=== PATIENT | female | born 1960 | race Caucasian/White ===

== ENCOUNTER 2019-10-23 14:18 | Inpatient (IN) ==
[2019-10-23 14:46] LABS: BASO# 0.06 X1000 (0.0-0.2); BASO% 0.5 % (0.0-0.8); EOS# 0.33 X1000 (0.0-0.7); EOS% 2.6 % (0.0-10.0); IMM GRAN# 0.02 X1000 (0.0-0.04); IMM GRAN% 0.2 % (0.0-0.5); LYMPH# 2.94 X1000 (1.2-3.4); LYMPH% 23.5 % (20.5-51.1); MCH 29.9 PG (27-31); MCHC 34.1 g/dL (33-37); MCV 87.6 FL (81-99); MONO# 0.68 X1000 (0.11-0.59); MONO% 5.4 % (1.7-9.3); MPV 11.5 FL (7.4-10.4); NEUT% 67.8 % (42.2-75.2); PLT 331 X1000 (130-400); RBC 4.68 XMIL (4.2-5.4); RDW 13.1 % (11.5-14.5); WBC 12.53 X1000 (4.8-10.8)
[2019-10-23 15:07] LABS: ALBUMIN 4.7 g/dL (3.5-5.0); CALCIUM 10.4 mg/dL (8.8-10.2); CREATININE 2.3 mg/dL (0.5-0.9); POTASSIUM 3.3 mmol/L (3.5-5.1); TOTAL BILIRUBIN 0.6 mg/dL (0.20-1.00); TOTAL PROTEIN 7.9 g/dL (6.3-8.3)
[2019-10-23] MEDS ORDERED: NS 1,000 ML IV ONE (15:17)
[2019-10-23] MEDS ORDERED: HUMULIN R IV ONE (15:18)
[2019-10-23] MEDS ORDERED: HUMULIN R (PARKWAY) ONE ×2 (15:23→15:26)
[2019-10-23 16:19] LABS: BE 13.8 mmoll (-3.0-3.0); BLOOD TYPE ARTERIAL; HCO3-(ACT) 35.6 mmoll (20.0-26.0); METHB 1.2 % (0.0-1.5); O2(CT) 19.3 mL/dL (15.0-23.0); O2HB 93.8 % (95.0-99.0); PO2(98.6) 76 mmHg (60-100); SAMPLE BLOOD; SAO2 96.7 % (95.0-100.0); THB 14.6 g/dL (11.5-17.4); pH(98.6) 7.49 (7.35-7.45)
[2019-10-23] MEDS ORDERED: ZOFRAN IV PRN (16:28)
[2019-10-23] MEDS ORDERED: TYLENOL PO PRN (16:28)
[2019-10-23 16:37] LABS: URINE SOURCE CATH
[2019-10-23] MEDS ORDERED: KLOR-CON PO ONE (16:37)
[2019-10-23 16:40] LABS: BILIRUBIN URINE NEGATIVE (NEGATIVE); BLOOD URINE NEGATIVE (NEGATIVE); COLOR STRAW; GLUCOSE URINE >1000 mg/dL (NEGATIVE); KETONE URINE NEGATIVE (NEGATIVE); LEUKOCYTES URINE NEGATIVE (NEGATIVE); NITRITE URINE NEGATIVE (NEGATIVE); PROTEIN URINE NEGATIVE (NEGATIVE); SP GRAVITY URINE 1.006; TURBIDITY URINE CLEAR (CLEAR); UROBILINOGEN URINE NORMAL (NORMAL)
--- NOTE | 2019-10-23 16:40 | PROVIDER DOCUMENTATION ---
This chart was entered by Odalis Martinez Scribe, acting as scribe for Charan Jacob MD. HPI-General Adult - General Chief Complaint: Weakness Stated Complaint: LEG WEAKNESS Time Seen by Provider: 10/23/19 15:13 Source: patient Allergies/Adverse Reactions: Patient Allergies Allergy/AdvReac Type Severity Reaction Status Date / Time Sulfa (Sulfonamide Allergy ANAPHYLAXIS Verified 10/23/19 16:34 Antibiotics) Home Medications: Home Medication List Medication Instructions Recorded Confirmed Last Taken Type Carvedilol [Coreg] 6.25 mg PO BID 04/28/13 01/09/17 10/16/15 History Divalproex E.r. [Depakote ER] 500 mg PO BID 04/28/13 01/09/17 10/17/15 06:30 History 500 Glipizide E.r. [Glucotrol Xl] 2.5 mg PO DAILY 04/28/13 01/09/17 10/16/15 07:00 History 2.5 Omeprazole [Prilosec] 40 mg PO QAM 04/28/13 01/09/17 10/16/15 07:00 History 40 Potassium Chloride [Klor-Con M20] 20 meq PO DAILY 06/15/13 01/09/17 10/16/15 07:00 History 20 ATORVAstatin [Lipitor] 10 mg PO QHS 10/13/15 01/09/17 10/16/15 18:00 History 10 Albuterol Sulfate [Proair Hfa] 1 puff IH 4XDAY 10/13/15 01/09/17 10/16/15 07:00 History 1 Cholecalciferol (Vitamin D3) 2,000 unit PO DAILY 10/13/15 01/09/17 10/16/15 07:00 History [Vitamin D3] 2000 Cyclobenzaprine [Flexeril] 5 mg PO PRN PRN 10/13/15 01/09/17 Unknown History Fenofibrate Nanocrystallized 145 mg PO DAILY 10/13/15 01/09/17 10/16/15 07:00 History [Tricor] 145 Fluticasone/Salmeterol [Advair 1 each IH BID 10/13/15 01/09/17 Unknown History 250-50 Diskus] Furosemide [Lasix] 40 mg PO PRN PRN 1101/09/17 10/16/15 07:00 History 40 Gabapentin 100 mg PO TID 10/13/15 01/09/17 10/16/15 18:00 History 100 Levothyroxine [Synthroid] 50 microgm PO DAILY 10/13/15 01/09/17 10/16/15 07:00 History 50 Lisinopril/Hydrochlorothiazide 1 each PO DAILY 10/13/15 01/09/17 10/16/15 18:00 History [Lisinopril-Hctz 20-25 mg Tab] 1 Loperamide [Imodium] 2 mg PO PRN PRN 10/13/15 01/09/17 Unknown History Multivitamins/Minerals [Centrum 1 each PO DAILY 10/13/15 01/09/17 10/16/15 07:00 History Silver] 1 Rivaroxaban [Xarelto] 20 mg PO DAILY 10/13/15 10/17/15 10/05/15 History 20 Tiotropium [place] Inhaler 1 puff INH BID 10/13/15 01/09/17 10/16/15 History [Spiriva] 1 Ferrous Sulfate 325 mg PO DAILY 01/09/17 01/09/17 Unknown History Magnesium Oxide 400 mg PO DAILY 01/09/17 01/09/17 Unknown History Ondansetron Odt [Zofran Odt] 4 mg PO Q6H PRN PRN 01/09/17 01/09/17 Unknown History CefUROXIME [Ceftin] 500 mg PO Q12HR #28 tablet 01/14/17 Unknown Rx Levofloxacin [Levaquin] 750 mg PO DAILY #7 tablet 03/20/17 Unknown Rx - History of Present Illness -Gen Adult Nature of Presenting Problems: Patient is a 59 year old female who presents with weakness, polyuria and increase in thirst. States symptoms started this morning. History of diabetes. Denies nausea, vomiting and diarrhea. Location of Pain/Injury: reports: none Quality of Pain: reports: none Severity: reports: mild Onset/Duration: reports: this afternoon Timing: reports: still present Context/Activities at Onset: reports: light activity Associated Symptoms: reports: genitourinary problems (polyuria), weakness, other (increase in thirst) Similar Symptoms Previously?: No Recently seen or treated by another doctor?: No Review of Systems - Adult - REVIEW OF SYSTEMS - ADULT Constitutional: reports: no symptoms reported Eyes: reports: no symptoms reported Ears, Nose, Mouth & Throat: reports: no symptoms reported Cardiovascular: reports: no symptoms reported Respiratory: reports: no symptoms reported Gastrointestinal: reports: no symptoms reported Genitourinary: reports: no symptoms reported Musculoskeletal: reports: see HPI, muscle weakness. denies: back pain, neck pain Integumentary: reports: no symptoms reported Neurological: reports: no symptoms reported Psychiatric: reports: no symptoms reported Endocrine: reports: see HPI, increased thirst, polyuria. denies: excessive sweating Hematologic/Lymphatic: reports: no symptoms reported Allergic/Immunologic: reports: no symptoms reported All Other Systems: Reviewed and Negative Past History - Adult - PAST MEDICAL HISTORY-ADULT Review of Records: reports: Old Records Reviewed, Nursing Assessment Review, Medications Reviewed, Social history reviewed & non-contributory. Major Childhood Illnesses: reports: denies history Cardiovascular: reports: CHF, HTN, hyperlipidemia Respiratory: reports: COPD, sleep apnea Gastrointestinal: reports: cancer, GERD Obstetrical/Gynecological: reports: denies history Genitourinary: reports: denies history Musculoskeletal: reports: denies history Neurological: reports: Seizures/Epilepsy Endocrine/Immune: reports: Diabetes, thyroid disorder Other Conditions: reports: denies history - PRIOR SURGERIES/PROCEDURES Surgical/Procedure History: reports: appendectomy, colonoscopy, cholecystectomy, BTL - IMMUNIZATION STATUS Childhood Immunizations: See Nurse Assessment Flu Vaccine: See Nurse Assessment - FAMILY HISTORY Family History: reviewed, not pertinent - SOCIAL HISTORY Smoking: cigarettes (former) Substance Use: denies Living Situation: family Physical Exam-General - PHYSICAL EXAM-ADULT Initial Vital Signs Reviewed: Yes - CONSTITUTIONAL General Appearance: alert, no apparent distress. negative: lethargic - HEAD, EARS, NOSE, MOUTH & THROAT HENMT: normocephalic/atraumatic, other (dry mucous membranes). negative: angioedema - RESPIRATORY Respiratory: chest non-tender, lungs clear, normal breath sounds. negative: rales - CARDIOVASCULAR Cardiovascular: normal peripheral pulses, regular rate, rhythm. negative: tachycardia - GASTROINTESTINAL (ABDOMEN) Abdominal Exam: normal bowel sounds, non tender, soft. negative: rigid - MUSCULOSKELETAL Extremity: normal inspection. negative: deformity, erythema - SKIN Integumentary: normal color, normal turgor, warm/dry. negative: diaphoresis, jaundice - NEUROLOGIC Neurologic: grossly normal. negative: aphasia, facial droop - PSYCHIATRIC Psych/Mental Status: normal mood/affect, oriented x 3. negative: anxious Progress - PLAN OF CARE/RESULTS Progress/Plan/Lab Results: Vital Signs - 8 hr 10/23/19 14:23 Temperature 98.2 F Pulse Rate 75 Respiratory Rate 20 Blood Pressure 123/81 O2 Sat by Pulse Oximetry 95 Laboratory Results - last 24 hr 10/23/19 10/23/19 10/23/19 14:34 14:34 14:34 WBC 12.53 H RBC 4.68 Hgb 14.0 Hct 41.0 MCV 87.6 MCH 29.9 MCHC 34.1 RDW Std Deviation 13.1 Plt Count 331 MPV 11.5 H Immature Gran % (Auto) 0.2 Neut % (Auto) 67.8 Lymph % (Auto) 23.5 Keith % (Auto) 5.4 Eos % (Auto) 2.6 Baso % (Auto) 0.5 Immature Gran # (Auto) 0.02 Neut # (Auto) 8.50 H Lymph # (Auto) 2.94 Keith # (Auto) 0.68 H Eos # (Auto) 0.33 Baso # (Auto) 0.06 Sodium Potassium Chloride Carbon Dioxide Anion Gap BUN Creatinine Estimated GFR/1.73 m2 BUN/Creatinine Ratio Glucose Calculated Osmolality Calcium Total Bilirubin AST ALT Alkaline Phosphatase Creatine Kinase 49 Troponin T < 0.010 Total Protein Albumin Globulin Albumin/Globulin Ratio Acetone Level 10/23/19 10/23/19 14:34 14:34 WBC RBC Hgb Hct MCV MCH MCHC RDW Std Deviation Plt Count MPV Immature Gran % (Auto) Neut % (Auto) Lymph % (Auto) Keith % (Auto) Eos % (Auto) Baso % (Auto) Immature Gran # (Auto) Neut # (Auto) Lymph # (Auto) Keith # (Auto) Eos # (Auto) Baso # (Auto) Sodium 128 L Potassium 3.3 L Chloride 74 L Carbon Dioxide 33 Anion Gap 21 BUN 38 H Creatinine 2.3 H Estimated GFR/1.73 m2 22 BUN/Creatinine Ratio 17 Glucose 517 H* Calculated Osmolality 289 Calcium 10.4 H Total Bilirubin 0.60 AST 20 ALT 15 Alkaline Phosphatase 215 H Creatine Kinase Troponin T Total Protein 7.9 Albumin 4.7 Globulin 3.0 Albumin/Globulin Ratio 1.0 Acetone Level NEGATIVE Orders Category Date Time Status CHEST-2 VIEWS [RAD] Stat Exams 10/23/19 14:32 Taken ABG [RESP] Routine Lab 10/23/19 15:17 Ordered ACETONE SERUM [CHEM] Stat Lab 10/23/19 14:34 Completed CBC WITH DIFF [HEME] Stat Lab 10/23/19 14:34 Completed CK PROFILE [SP CHEM] Stat Lab 10/23/19 14:34 Completed COMPREHENSIVE METABOLIC PANEL [CHEM] Stat Lab 10/23/19 14:34 Completed TROPONIN T Stat Lab 10/23/19 14:34 Completed 0.9% Sodium Chloride Inj [Ns] 1,000 ml Med 10/23/19 15:17 Active IV 999 mls/hr Insulin Human Regular ([place] [Humulin R ([place])] Med 10/23/19 15:23 Discontinued 10 units .ROUTE .STK-MED ONE Insulin Human Regular ([place] [Humulin R ([place])] Med 10/23/19 15:26 Disco ntinued 10 units .ROUTE .STK-MED ONE Insulin Human Regular [Humulin R] Med 10/23/19 15:18 Discontinued 10 unit IV NOW ONE EKG [EKG] Stat Ther 10/23/19 14:32 Ordered Result Diagrams: 10/23/19 14:34 10/23/19 14:34 - REASSESSMENT Reassessment #1 Time Reassessed: 16:36 Status: improving (note ABGs, not acidotic. admit to dr Pepper here.) - EKG 1 Time of EKG reading by physician:: 15:00 EKG Read and Signed by:: Charan Jacob EKG Interpretation (*Must complete 3 of following elements*): Abnormal Rate: 74 Rhythm: normal sinus rhythm [place]: normal [place] Interval: normal Comments: cannot rule out anterior infarct, age undetermined - CONSULTS/PCP/HOSPITALIST Notification #1 *Consult/PCP/Hospitalist*: Dr. Pepper Time Discussed: 15:58 Reason/Comments: Dr. Jacob consulted with Dr. Pepper about patient Consult Disposition: Admit Departure - Departure Date of Disposition Decision: 10/23/19 Time of Disposition Decision: 16:28 DIAGNOSIS: Dehydration, Hyperglycemia, Leukocytosis, Hyponatremia, Acute renal insufficiency, Hypokalemia Disposition: ADMITTED INPATIENT 09 Certified Medical Emergency: Emergent Condition: Stable Referrals and Follow-Ups: Sukhdev Pepper MD [Primary Care Provider] - - Critical Care Note This patient required my direct & personal management of CC.: No Attestation - Physician/ PATRICIA Attestation The physician spent face to face time with patient:: Yes Advanced Practice Provider documentation review:: Supervising physician onsite and consulted in the evaluation and care of this patient. The physician did have a face to face encounter with the patient. This chart was documented by the indicated scribe, (Odalis Martinez Scribe) and accurately reflects the services I performed and decisions made by me, Silvestre Jacob MD, as attested by the provider's signature.
[2019-10-23 16:42] LABS: UR EPITHELIAL CELLS <10 /HPF (<10); URINE BACTERIA NEGATIVE /HPF; URINE RBC <10 /HPF (<10); URINE WBC <10 /HPF (<10)
--- NOTE | 2019-10-23 16:55 | Diag Imaging Result Doc PS360 ---
EXAM: CHEST-2 VIEWS INDICATION: weakness TECHNIQUE: 2 views COMPARISON: 03/20/2017 FINDINGS: Inspiration is slightly suboptimal. There is stable mild linear scarring at the lower lung zones bilaterally. There is no discrete pleural fluid collection or pneumothorax. The cardiomediastinal silhouette and central vasculature are grossly unremarkable. IMPRESSION: Stable mild lower lung zone scarring. No definite acute chest pathology, otherwise. Electronically signed by Jasper Perry 10/23/2019 4:52 PM
[2019-10-23 17:12] LABS: ALLEN TEST YES; MODALITY ROOM AIR; PCO2(98.6) 52 mmHg (35-45)
[2019-10-23] MEDS ORDERED: HUMALOG (PARKWAY) ONE (17:56)
[2019-10-23] MEDS: NS 1,000 ML IV SCH (18:02)
[2019-10-23] MEDS: HUMALOG (PARKWAY) SUBQ SCH (18:02)
--- NOTE | 2019-10-23 18:22 | EKG Report ---
Test Performed on : 10/23/2019 3:00:17 PM Test Reason : WEAKNESS Blood Pressure : / mmHG Vent. Rate : 074 BPM Atrial Rate : 074 BPM P-R Int : 148 ms QRS Dur : 084 ms QT Int : 444 ms P-R-T Axes : 053 -20 031 degrees QTc Int : 492 ms Normal sinus rhythm. Cannot rule out Anterior infarct , age undetermined Abnormal ECG When compared with ECG of 20-MAR-2017 08:57, No significant change was found Unconfirmed Result
--- NOTE | 2019-10-23 23:50 | HISTORY AND PHYSICAL ---
CHIEF COMPLAINT: Nausea. HISTORY OF PRESENT ILLNESS: The patient is a 59-year-old female who sees nurse practitioner at [facility]. She notes that she has been out of her medications, but has not gone to the pharmacy to pick them up yet. States she has had some nausea and vomiting and that is what presented to the ER. SOCIAL HISTORY: She is . She is on disability. Lives at home in [place]. Denies alcohol use. ALLERGIES: No known drug allergies. MEDICATIONS: Coreg 6.25 twice daily, Glucotrol, omeprazole, Lipitor, ProAir, Lasix, Synthroid, blood pressure medication. Do not have an active medication list. REVIEW OF SYSTEMS: Notes she has had some increased urination and some occasional dysuria, increased thirst. Has had nausea, abdominal pain. Denies diarrhea. Denies blood in her urine, blood in her stool. Denies headaches, blurred vision, change in vision. Denies focalized numbness, tingling, or weakness in her extremities. Denies any dysuria, urinary frequency, urgency prior to the past 2 days. Denies any weight loss or weight gain. Denies chest pain, palpitations. PAST MEDICAL HISTORY: Significant for hypertension, diabetes, chronic reflux, seizures, hypothyroidism, COPD, CHF, hyperlipidemia, sleep apnea. SURGICAL HISTORY: She has had an appendectomy, colonoscopy, cholecystectomy, bilateral tubal. PHYSICAL EXAMINATION: VITAL SIGNS: Reviewed. Temperature 98 degrees, pulse 75, respiratory 20, BP 123/81. GENERAL: Patient is awake, alert. She is currently in no respiratory distress. She is pleasant to talk with but is somewhat ill appearing. HEENT: Normocephalic. NECK: Supple. CARDIOVASCULAR: Regular rate. No murmurs. CHEST: Clear and unlabored. ABDOMEN: Soft, diffusely tender. No masses. No hepatosplenomegaly. Positive bowel sounds. EXTREMITIES: Moves all extremities. No edema. NEUROLOGIC: No focal neurological changes. She is awake, alert, oriented x3. SKIN: Warm, dry. No rashes. LABORATORIES: WBCs 12.5. Glucose 128, potassium 3.3, creatinine 2.3, glucose 517. ASSESSMENT: 1. Diabetes with marked hyperglycemia. 2. Hyponatremia. 3. Hypokalemia. 4. Acute on chronic renal failure. Creatinine typically is around 1.5. She is currently elevated at 2.3 secondary to volume depletion and prerenal. 5. Hypertension. 6. Congestive heart failure. 7. Hypothyroidism. 8. Questionable viral gastroenteritis versus hyperglycemic effect. PLAN: We are going to admit her to the hospital. Her bicarbonate is 33. Acetone is negative. Although she is hyperglycemic, she does not appear to be in DKA. We are going to admit her to the hospital. IV fluids. Start her on sliding scale insulin. Restart her home medications when we can verify medication and dosage. Check a urine for culture and we will follow. We will replace her potassium and her sodium. cc: Sukhdev Pepper MD
[2019-10-24] MEDS: HUMALOG (PARKWAY) SUBQ SCH ×5 (00:19→21:21)
[2019-10-24] MEDS: NS 1,000 ML IV SCH (05:55)
[2019-10-24 07:01] LABS: HEMATOCRIT 37.6 % (37.0-47.0); HEMOGLOBIN 12.6 g/dL (12.0-16.0); MCHC 33.5 g/dL (33-37); MCV 89.5 FL (81-99); MPV 11.8 FL (7.4-10.4); RBC 4.2 XMIL (4.2-5.4); WBC 10.31 X1000 (4.8-10.8)
[2019-10-24 07:06] LABS: ALBUMIN 3.6 g/dL (3.5-5.0); CALCIUM 9.5 mg/dL (8.8-10.2); CREATININE 1.6 mg/dL (0.5-0.9); MAGNESIUM 2.1 mg/dL (1.5-2.7); POTASSIUM 2.9 mmol/L (3.5-5.1); TOTAL BILIRUBIN 0.4 mg/dL (0.20-1.00); TOTAL PROTEIN 6.4 g/dL (6.3-8.3)
[2019-10-24 07:27] LABS: HEMOGLOBIN A1C 14.1 % (4.8-6.0)
[2019-10-24] MEDS ORDERED: KLOR-CON PO ONE (08:36)
[2019-10-24] MEDS ORDERED: IMODIUM PO PRN (08:38)
[2019-10-24] MEDS ORDERED: ZOFRAN ODT PO PRN (08:38)
[2019-10-24] MEDS ORDERED: LASIX PO PRN (08:38)
[2019-10-24] MEDS: ADVAIR 250/50 DISKUS INH SCH ×2 (10:15→19:55)
[2019-10-24] MEDS: SPIRIVA INH SCH ×2 (10:16→19:56)
[2019-10-24] MEDS: GLUCOTROL XL PO SCH (10:28)
[2019-10-24] MEDS: SYNTHROID PO SCH (10:28)
[2019-10-24] MEDS: THERA M PLUS PO SCH (10:28)
[2019-10-24] MEDS: HYDROCHLOROTHIAZIDE PO SCH (10:28)
[2019-10-24] MEDS: PRINIVIL PO SCH (10:28)
[2019-10-24] MEDS: DEPAKOTE ER PO SCH ×2 (10:29→21:21)
[2019-10-24] MEDS: TRICOR PO SCH (10:29)
[2019-10-24] MEDS: MAG-OX PO SCH (10:29)
[2019-10-24] MEDS: COREG PO SCH (10:29)
[2019-10-24] MEDS: NEURONTIN PO SCH ×3 (10:30→21:21)
[2019-10-24] MEDS: VITAMIN D PO SCH (10:30)
[2019-10-24] MEDS: XARELTO PO SCH (10:39)
[2019-10-24] MEDS: FERROUS SULFATE PO SCH (10:39)
[2019-10-24] MEDS: KLOR-CON PO ONE ×2 (16:52→17:14)
[2019-10-24] MEDS: LIPITOR PO SCH (21:21)
[2019-10-25] MEDS: COREG PO SCH ×2 (05:25→08:06)
[2019-10-25] MEDS: HUMALOG (PARKWAY) SUBQ SCH ×4 (06:04→21:04)
[2019-10-25 06:24] LABS: HEMATOCRIT 35.8 % (37.0-47.0); HEMOGLOBIN 11.5 g/dL (12.0-16.0); MCH 29.3 PG (27-31); MCHC 32.1 g/dL (33-37); MCV 91.1 FL (81-99); MPV 11.3 FL (7.4-10.4); RBC 3.93 XMIL (4.2-5.4); RDW 13.1 % (11.5-14.5); WBC 9.97 X1000 (4.8-10.8)
[2019-10-25 06:37] LABS: CALCIUM 9.2 mg/dL (8.8-10.2); POTASSIUM 3.1 mmol/L (3.5-5.1)
[2019-10-25] MEDS: PRILOSEC PO SCH (07:10)
[2019-10-25] MEDS: SYNTHROID PO SCH (07:11)
[2019-10-25] MEDS: ADVAIR 250/50 DISKUS INH SCH ×2 (07:55→19:39)
[2019-10-25] MEDS: SPIRIVA INH SCH ×2 (07:55→19:38)
[2019-10-25] MEDS: TRICOR PO SCH (08:04)
[2019-10-25] MEDS: PRINIVIL PO SCH (08:05)
[2019-10-25] MEDS: MAG-OX PO SCH (08:05)
[2019-10-25] MEDS: HYDROCHLOROTHIAZIDE PO SCH (08:05)
[2019-10-25] MEDS: FERROUS SULFATE PO SCH (08:06)
[2019-10-25] MEDS: XARELTO PO SCH (08:06)
[2019-10-25] MEDS: NEURONTIN PO SCH ×3 (08:06→16:30)
[2019-10-25] MEDS: DEPAKOTE ER PO SCH ×2 (08:06→21:04)
[2019-10-25] MEDS: VITAMIN D PO SCH (08:06)
[2019-10-25] MEDS: THERA M PLUS PO SCH (08:06)
[2019-10-25] MEDS: GLUCOTROL XL PO SCH (08:06)
[2019-10-25] MEDS: KLOR-CON PO SCH (08:08)
[2019-10-25] MEDS ORDERED: GLUCOTROL XL PO ONE (09:25)
--- NOTE | 2019-10-25 09:35 | PROGRESS NOTE ---
DATE: 10/24/2019 SUBJECTIVE: The patient notes that she is feeling a lot better, having less nausea. She is hoping she is going to be able to eat breakfast. Notes her blood sugars at home are typically 120. PHYSICAL EXAMINATION: Temperature 98.3 degrees, pulse 81, respiratory rate 18, BP 132/71.General: Patient is awake. She is in no respiratory distress. HEENT: Normocephalic. Neck: Supple. Cardiovascular: Regular rate. Chest: Clear. Abdomen: Soft. Extremities: Moves all extremities. ASSESSMENT: 1. Diabetes with marked hyperglycemia. Continues to improve. Blood sugars down at 330. Her A1c is 14, which was highly unlikely that her average blood sugar at home is 120. Discussed with her that most likely if her machine is reading 120 either she has not calibrated her strips or her machine is broken. 2. Hyponatremia improving. 3. Hypokalemia, still problematic. We will replace. 4. Acute on chronic renal failure, improving. 5. Hypertension. 6. Congestive heart failure. PLAN: We will continue patient in the hospital. Continue sliding scale insulin. We will continue replacing potassium. Restart her home medications and will adjust if needed. cc: Sukhdev Pepper MD
[2019-10-25] MEDS: NS 1,000 ML IV SCH ×2 (10:39→17:23)
--- NOTE | 2019-10-25 13:11 | PROGRESS NOTE ---
DATE: 10/25/2019 SUBJECTIVE: Patient notes that she is tired this morning. Does not feel well. Denies any focal issues. Denies chest pain or palpitations. PHYSICAL EXAMINATION: Vital Signs: Reviewed. Temp 98 degrees, pulse 77, respiratory 20, BP low at 71/47 to 85 systolic. HEENT: Normocephalic. Neck: Supple. Cardiovascular: Regular rate. Chest: Clear, nonlabored, no wheezing. Abdomen: Soft, nondistended, nontender. Extremities: Moves all extremities. ASSESSMENT: 1. Hypotension. We are obviously going to hold her Coreg, lisinopril, and hydrochlorothiazide, place her on IV fluids. 2. Hypokalemia. We will replace. 3. Diabetes. Blood sugars are better at 225. We are going to increase her glipizide to 5. 4. Acute on chronic renal failure. Creatinine has actually bumped up a little bit today from yesterday. 5. Hyponatremia. cc: Sukhdev Pepper MD
[2019-10-25] MEDS: LIPITOR PO SCH (21:04)
[2019-10-26 05:28] VITALS: BP 115/66
[2019-10-26] MEDS: NS 1,000 ML IV SCH (05:57)
[2019-10-26] MEDS: PRILOSEC PO SCH ×2 (05:58→06:03)
[2019-10-26] MEDS: SYNTHROID PO SCH ×2 (05:58→06:03)
[2019-10-26 06:04] LABS: HEMATOCRIT 36.6 % (37.0-47.0); HEMOGLOBIN 11.7 g/dL (12.0-16.0); MCH 29.2 PG (27-31); MCV 91.3 FL (81-99); MPV 11.3 FL (7.4-10.4); RBC 4.01 XMIL (4.2-5.4)
[2019-10-26 06:18] LABS: ALBUMIN 3.7 g/dL (3.5-5.0); CALCIUM 9.3 mg/dL (8.8-10.2); CREATININE 1.4 mg/dL (0.5-0.9); MAGNESIUM 2.1 mg/dL (1.5-2.7); POTASSIUM 3.3 mmol/L (3.5-5.1); TOTAL BILIRUBIN 0.3 mg/dL (0.20-1.00)
[2019-10-26] MEDS ORDERED: LASIX PO PRN (06:30)
[2019-10-26] MEDS: HUMALOG (PARKWAY) SUBQ SCH (06:40)
[2019-10-26] MEDS: ADVAIR 250/50 DISKUS INH SCH (08:11)
[2019-10-26] MEDS: SPIRIVA INH SCH (08:11)
[2019-10-26] MEDS: XARELTO PO SCH (08:24)
[2019-10-26] MEDS: THERA M PLUS PO SCH (08:24)
[2019-10-26] MEDS: VITAMIN D PO SCH (08:24)
[2019-10-26] MEDS: FERROUS SULFATE PO SCH (08:24)
[2019-10-26] MEDS: MAG-OX PO SCH (08:24)
[2019-10-26] MEDS: KLOR-CON PO SCH (08:24)
[2019-10-26] MEDS: NEURONTIN PO SCH (08:24)
[2019-10-26] MEDS: TRICOR PO SCH (08:24)
[2019-10-26] MEDS: DEPAKOTE ER PO SCH (08:24)
[2019-10-26] MEDS ORDERED: GLUCOTROL XL PO SCH (09:00)
--- NOTE | 2019-10-29 04:30 | DISCHARGE SUMMARY ---
ADMISSION DATE: 10/23/2019 DISCHARGE DATE: 10/26/2019 DISCHARGE DIAGNOSIS: 1. Diabetes with marked hyperglycemia, improved. Unfortunately, her home A1c is 14. 2. Hyponatremia, resolved. 3. Hypokalemia, resolved. 4. Hypotension, improved after holding hydrochlorothiazide. 5. Congestive heart failure, stable without exacerbation. 6. Acute renal failure on chronic, improved. Creatinine 2.3 on admit, 1.6 on discharge which is her baseline. CONSULTATION: None. PROCEDURES: None. BRIEF HOSPITAL COURSE: Patient is a 49-year-old female who presented to the hospital initially with nausea, fatigue, generalized weakness and was noted to have acute renal failure with a creatinine at 2.3 when her baseline is typically around 1.6. Her potassium was low as well as her sodium. Blood sugars were markedly elevated. We admitted her to the hospital, placed her on IV fluids, replaced her potassium, increased her blood sugar medications. Her A1c returned at 14. I did discuss with patient that she may need to take her meter with her to her next doctor's appointment and have her meter doubled checked as she thinks that her blood sugars at home are typically around 120, but an A1c at 14 certainly would suggest otherwise. Regardless, she continued to improve and actually would have been discharged home a day earlier, but her blood pressure dropped into the 75 to 80 systolic range. She felt lightheaded. We adjusted her blood pressure medications, stopped her hydrochlorothiazide, gave her a liter of fluids. On discharge, she is awake, alert. Her blood pressures are better 110s to 120s. She is awake, alert, oriented. She is in distress and notes that she is feeling better. DISPOSITION: Patient will be discharged home. We increased Glucotrol to 5 mg. Discussed with her the importance of controlling her diet, light activity. She will follow up outpatient with her primary care and we stopped her hydrochlorothiazide. cc: Sukhdev Pepper MD
== END 2019-10-26 10:52 | disposition home or self-care (01) | DRG 683 ==
LOC: P.ED 14:18 → P.MEDSURG 20:15
PROVIDERS: ADMIT Family Medicine; ATTEND Family Medicine